=== PATIENT | male | born 1975 | race Caucasian/White ===

== ENCOUNTER 2016-12-21 08:46 | Emergency (ER) | payer OTHER ==
[~2016-12-21] VITALS: Ht 188 cm; Wt 100.0 kg
[2016-12-21 08:56] VITALS: BP 146/72
[2016-12-21] MEDS ORDERED: DEXAMETHASONE 4 MG/ML, 1ML ONE (09:46)
[2016-12-21] MEDS ORDERED: DEXAMETHASONE 4 MG/ML, 1ML PO ONE (10:00)
== END 2016-12-21 10:28 | disposition home or self-care (01) ==
LOC: ED 10:00
DX: B30.9 Viral conjunctivitis, unspecified (principal); J02.8 Acute pharyngitis due to other specified organisms; Z90.81 Acquired absence of spleen; F17.210 Nicotine dependence, cigarettes, uncomplicated
CPT/HCPCS: 70360; 87081; 87147; 87880; 99285; J1100

== ENCOUNTER 2017-01-09 19:24 | Emergency (ER) | payer OTHER ==
[~2017-01-09] VITALS: Ht 188 cm; Wt 99.1 kg
[2017-01-09 19:28] VITALS: BP 137/75
== END 2017-01-09 20:15 | disposition home or self-care (01) ==
LOC: ED 19:30
DX: J02.8 Acute pharyngitis due to other specified organisms (principal); F15.10 Other stimulant abuse, uncomplicated; F12.10 Cannabis abuse, uncomplicated
CPT/HCPCS: 99283